=== PATIENT | female | born 1995 | race Two or more races ===

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

== ENCOUNTER 2017-02-12 17:43 | Emergency (ER) | payer SELFPAY ==
[~2017-02-12] VITALS: Ht 162.6 cm; Wt 47.7 kg
[~2017-02-12 17:43] MED LIST changes: -ESCI10TA10 PO; +LEXAPRO10 MG PO
[2017-02-12 18:13] VITALS: BP 139/57
[2017-02-12 19:10] LABS: BACTERIA,URINE FEW /HPF (0-FEW); BILIRUBIN,URINE NEG (NEG); CLARITY,URINE CLOUDY; COLOR,URINE YELLOW; NITRITE,URINE NEG (NEG); SQUAMOUS EPITHELIAL CELL,UR MOD /LPF; UROBILINOGEN,URINE 0.2 mg/dL (0.2 mg/dL); WBC,URINE >40 /HPF (0-4)
[2017-02-12 19:11] LABS: GLUCOSE,URINE NEG (NEG)
[2017-02-12] MEDS ORDERED: SULF1TAB24 PO (19:44)
--- NOTE | 2017-02-12 19:44 | PHYS DOC ---
Past History Past Medical History: No Pertinent History Past Surgical History: Tonsillectomy Smoking: Non-smoker Alcohol Use: None Drug Use: Marijuana Adult General Chief Complaint Chief Complaint: FLANK PAIN HPI HPI Patient is a 21 year old F who presents with urinary difficulty. Over the past 2 -3 days she states that she has had the feeling that she needs to urinate but very little comes out. She also describes discomfort when urinating. She feels that she has to go more often and describes urgency. She does have mild left flank pain without nausea or vomiting. Review of Systems Review of Systems Constitutional: Denies fever or chills [] Eyes: Denies change in visual acuity, redness, or eye pain [] HENT: Denies nasal congestion or sore throat [] Respiratory: Denies cough or shortness of breath [] Cardiovascular: No additional information not addressed in HPI [] GI: Denies nausea, vomiting, bloody stools or diarrhea [] : Negative except history of present illness Musculoskeletal: Denies back pain or joint pain [] Integument: Denies rash or skin lesions [] Neurologic: Denies headache, focal weakness or sensory changes [] Endocrine: Denies polyuria or polydipsia [] Family History Family History Noncontributory Current Medications Current Medications Current Medications Medications (Trade) Dose Ordered Sig/Monica Start Time Stop Time Status Last Admin Dose Admin Trimethoprim/ Sulfamethoxazole (Bactrim Ds) 1 tab 1X ONCE 02/12/17 19:45 02/12/17 19:46 UNV Allergies Allergies Allergies Coded Allergies Type Severity Reaction Last Updated Verified No Known Drug Allergies 09/10/16 No Physical Exam Physical Exam Constitutional: Well developed, well nourished, no acute distress, non-toxic appearance. [] HENT: Normocephalic, atraumatic, bilateral external ears normal, oropharynx moist, no oral exudates, nose normal. [] Eyes: EOMI, conjunctiva normal, no discharge. [] Neck: Normal range of motion, no tenderness, supple, no stridor. [] Cardiovascular:Heart rate regular rhythm, Lungs & Thorax: Bilateral breath sounds clear to auscultation [] Abdomen: Bowel sounds normal, soft, no masses, no pulsatile masses. [] Mild suprapubic pain noted without flank pain Skin: Warm, dry, no erythema, no rash. [] Back: No tenderness, no CVA tenderness. [] Extremities: No tenderness, no cyanosis, no clubbing, ROM intact, no edema. [] Neurologic: Alert and oriented X 3, normal motor function, normal sensory function, no focal deficits noted. [] Psychologic: Affect normal, judgement normal, mood normal. [] Current Patient Data Vital Signs Vital Signs Date Time Temp Pulse Resp B/P (MAP) Pulse Ox O2 Delivery O2 Flow Rate FiO2 02/12/17 18:13 98.1 77 20 99 Room Air Lab Results Laboratory Tests Test 02/12/17 17:55 Urine Collection Type Unknown Urine Color Yellow Urine Clarity Cloudy Urine pH 6.0 Urine Specific [place] >=1.030 Urine Protein Neg (NEG-TRACE) Urine Glucose (UA) Neg mg/dL (NEG) Urine Ketones (Stick) Trace mg/dL (NEG) Urine Blood Mod (NEG) Urine Nitrite Neg (NEG) Urine Bilirubin Neg (NEG) Urine Urobilinogen Dipstick 0.2 mg/dL (0.2 mg/dL) Urine Leukocyte Esterase Small (NEG) Urine RBC 6-10 /HPF (0-2) Urine WBC >40 /HPF (0-4) Urine Squamous Epithelial Cells Mod /LPF Urine Bacteria Few /HPF (0-FEW) Urine Mucus Slight /LPF EKG EKG [] Radiology/Procedures Radiology/Procedures [] Course & Med Decision Making Course & Med Decision Making Pertinent Labs and Imaging studies reviewed. (See chart for details) [] Dragon Disclaimer Dragon Disclaimer This chart was dictated in whole or in part using Voice Recognition software in a busy, high-work load, and often noisy Emergency Department environment. It may contain unintended and wholly unrecognized errors or omissions. Departure Departure: Impression: Primary Impression: UTI (urinary tract infection) Disposition: HOME, SELF-CARE Condition: STABLE Referrals: DARBY GONZALES MD (PCP) Patient Instructions: Urinary Tract Infection Additional Instructions: Ena was seen in the emergency room for urinary difficulty. No emergency medical condition was found on history or physical exam. She did have signs and symptoms consistent with urinary tract infection for which she was started on antibiotic. She was also given a prescription for the duration of her treatment. She is advised follow-up with her primary care doctor as needed for further management. Scripts Sulfamethoxazole/Trimethoprim (BACTRIM DS TABLET) 1 Each Tablet 1 TAB PO BID for 5 Days, #10 TAB Prov: JUAN MIGUEL KEARNEY MD 02/12/17 Problem Qualifiers Primary Impression: UTI (urinary tract infection) Urinary tract infection type: site unspecified Hematuria presence: with hematuria Qualified Codes: N39.0 - Urinary tract infection, site not specified ; R31.9 - Hematuria, unspecified JUAN MIGUEL KEARNEY MD Feb 12, 2017 19:44
[2017-02-12] MEDS ORDERED: SMZ/TMP 800/160MG TABLET. PO ONE (19:45)
== END 2017-02-12 20:00 | disposition home or self-care (01) ==
LOC: ER 17:43
DX: N39.0 Urinary tract infection, site not specified (principal); F12.10 Cannabis abuse, uncomplicated
CPT/HCPCS: 81001; 87086; 87186; 99284

== ENCOUNTER 2019-01-19 11:22 | Emergency (ER) | payer SELFPAY ==
[~2019-01-19] VITALS: Ht 162.6 cm; Wt 48.6 kg
[~2019-01-19 11:22] MED LIST changes: +NAPR-683 PO; -NAPR500T PO
[2019-01-19 11:29] VITALS: BP 131/65
--- NOTE | 2019-01-19 11:50 | RAD ---
Three-view lumbar spine series Clinical indications: Right-sided low back pain. Fell yesterday. FINDINGS: The transverse processes are intact. No compression fracture or discitis or lytic process or anterolisthesis is evident. No significant degenerative disc space narrowing or endplate spurring is seen. An IUD is evident. IMPRESSION: No acute osseous abnormality. Electronically signed by: Benjamin Christianson MD (01/19/2019 11:46 AM) [id number]
--- NOTE | 2019-01-19 12:17 | PHYS DOC ---
Past History Past Medical History: No Pertinent History Past Surgical History: No Surgical History Smoking: Non-smoker Alcohol Use: None Drug Use: None Adult General Chief Complaint Chief Complaint: LOWER BACK PAIN OR INJURY [facility] HPI 23-year-old female presents with right, lateral, low back pain. She has had a nagging pain that she describes as a tension and pulling for about one week. It is worse when she first wakes up in the morning. She has some difficulty sleeping. 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 She has not been taking any medications regularly for this. She denies any trauma. She has had intermittent back problems in the past but they usually go away in a day or 2. She has not done physical therapy. The pain is bothering her so she left work and decided she should be evaluated. She denies fever, chills, dysuria, urinary frequency. Review of Systems Review of Systems Constitutional: Denies fever or chills [] Eyes: Denies change in visual acuity, redness, or eye pain [] HENT: Denies nasal congestion or sore throat [] Respiratory: Denies cough or shortness of breath [] Cardiovascular: No additional information not addressed in HPI [] GI: Denies abdominal pain, nausea, vomiting, bloody stools or diarrhea [] : Denies dysuria or hematuria [] Musculoskeletal: Right low back pain[] Integument: Denies rash or skin lesions [] Neurologic: Denies headache, focal weakness or sensory changes [] Endocrine: Denies polyuria or polydipsia [] All other systems were reviewed and found to be within normal limits, except as documented in this note. Allergies Allergies Allergies Coded Allergies Type Severity Reaction Last Updated Verified No Known Drug Allergies 09/10/16 No Physical Exam Physical Exam Constitutional: Well developed, well nourished, no acute distress, non-toxic appearance. [] HENT: Normocephalic, atraumatic, bilateral external ears normal, oropharynx moist, no oral exudates, nose normal. [] Eyes: PERRLA, EOMI, conjunctiva normal, no discharge. [] Neck: Normal range of motion, no tenderness, supple, no stridor. [] Cardiovascular:Heart rate regular rhythm, no murmur [] Lungs & Thorax: Bilateral breath sounds clear to auscultation [] Abdomen: Bowel sounds normal, soft, no tenderness, no masses, no pulsatile masses. [] Skin: Warm, dry, no erythema, no rash. [] Back: Right-sided tenderness in the paraspinal muscles around L3[] Extremities: No tenderness, no cyanosis, no clubbing, ROM intact, no edema. [] Neurologic: Alert and oriented X 3, normal motor function, normal sensory function, no focal deficits noted. [] Psychologic: Affect normal, judgement normal, mood normal. [] Current Patient Data Vital Signs Vital Signs Date Time Temp Pulse Resp B/P (MAP) Pulse Ox O2 Delivery O2 Flow Rate FiO2 01/19/19 11:29 98.4 94 18 98 Room Air EKG EKG [] Radiology/Procedures Radiology/Procedures [] Impressions: Three-view lumbar spine series Clinical indications: Right-sided low back pain. Fell yesterday. FINDINGS: The transverse processes are intact. No compression fracture or discitis or lytic process or anterolisthesis is evident. No significant degenerative disc space narrowing or endplate spurring is seen. An IUD is evident. IMPRESSION: No acute osseous abnormality. Electronically signed by: Erika Christianson MD (01/19/2019 11:46 AM) [id number] DICTATED AND SIGNED BY: ERIKA CHRISTIANSON MD DATE: 01/19/19 1146 CC: CARLITA VALLES DO; PCP,ESTHER ~ Course & Med Decision Making Course & Med Decision Making Pertinent Labs and Imaging studies reviewed. (See chart for details) The patient's physical exam is consistent with a muscle strain of the lumbar paraspinal muscles. I will treat her with prednisone for 3 days. I will also give her today and tomorrow off work to rest. I've advised that she consider physical therapy to strengthen this area to avoid future problems. She stated verbal understanding. She is stable for discharge at this time. [] Dragon Disclaimer Dragon Disclaimer This electronic medical record was generated, in whole or in part, using a voice recognition dictation system. Departure Departure: Impression: Primary Impression: Strain of lumbar paraspinal muscle Disposition: HOME, SELF-CARE Condition: STABLE Referrals: PCP,NO (PCP) Patient Instructions: Low Back Sprain with [facility]hab[facility] Script[facility] Prednisone (PREDNISONE) 10 Mg Tablet 40 MG PO DAILY for back sprain for 3 Days, #12 TAB Prov: CARLITA VALLES DO 01/19/19 Problem Qualifiers Primary Impression: Strain of lumbar paraspinal muscle Encounter type: initial encounter Qualified Codes: S39.012A - Strain of muscle, fascia and tendon of lower back, initial encounter CARLITA VALLES DO Jan 19, 2019 12:17
[2019-01-19] MEDS ORDERED: PRED-220 PO (12:31)
== END 2019-01-19 12:45 | disposition home or self-care (01) ==
LOC: ER 11:22
DX: S39.012A Strain of muscle, fascia and tendon of lower back, initial encounter (principal); X50.9XXA Other and unspecified overexertion or strenuous movements or postures, initial encounter; Y93.89 Activity, other specified; Y92.89 Other specified places as the place of occurrence of the external cause; Y99.8 Other external cause status
CPT/HCPCS: 72100; 99284